=== PATIENT | male | born 1965 | race Hispanic/Latino ===

== ENCOUNTER 2025-08-07 13:10 | Outpatient (CLI) | payer MEDICARE | END 2025-08-07 13:11 | disposition home or self-care (01) | LOC: MRI 13:10 | PROVIDERS: ATTEND Family Medicine | DX: B69.0 Cysticercosis of central nervous system (principal); G93.9 Disorder of brain, unspecified; Z97.8 Presence of other specified devices | CPT/HCPCS: 70250; 70553; 76376 ==